=== PATIENT | male | born 1995 | race Asian ===

== ENCOUNTER 2019-04-13 08:27 | Outpatient (CLI) | payer OTHER ==
--- NOTE | 2019-04-13 16:03 | MRI Report ---
Reason: BICIPITAL TENDINITIS Procedure Date: 04/13/2019 Accession Number: [id number] / [id number] Procedure: MRI - Shoulder RT W/O CPT Code: Final Report FULL RESULT: EXAM: RIGHT SHOULDER MRI WITHOUT CONTRAST EXAM DATE: 04/13/2019 10:19 AM. CLINICAL HISTORY: Bicipital tendinitis. COMPARISON: None. TECHNIQUE: Multiplanar, multisequence T1-weighted and fluid-sensitive sequences of the shoulder without contrast. Other: None. FINDINGS: Acromioclavicular Region: The acromion is type II. The acromioclavicular joint is unremarkable. No subacromial/subdeltoid bursal fluid. Glenohumeral Region: No subluxation. No effusion or loose bodies. The articular cartilage is unremarkable. Bone Marrow: No fracture, marrow edema or bone lesions. Labrum: There is fluid between the capsule and labrum in the posteroinferior quadrant. The findings may indicate the presence of a posteroinferior quadrant tear. Musculature/Rotator Cuff: The subscapularis, supraspinatus, infraspinatus, and teres minor tendons are intact. No edema or fatty atrophy. Biceps Tendon: The long head of the biceps tendon and biceps jersey are intact. Other: The subcutaneous tissues are unremarkable. IMPRESSION: 1. Possible small posteroinferior quadrant labral tear. Otherwise normal. RADIA
== END 2019-04-13 08:28 | disposition home or self-care (01) ==
LOC: DI 08:27
DX: M75.21 Bicipital tendinitis, right shoulder (principal)

== ENCOUNTER 2021-08-19 15:02 | Outpatient (CLI) | payer OTHER ==
--- NOTE | 2021-08-19 17:21 | MRI Report ---
PROCEDURE: Wrist LT W/O INDICATIONS: PAIN IN WRIST TECHNIQUE: Noncontrast coronal proton density fast spin echo and T2 fast spin echo with fat saturation; coronal 3-D gradient echo, axial T1 spin echo and T2 fast spin echo with fat saturation, sagittal T1 spin ech o through the wrist. COMPARISON: None. FINDINGS: Image quality: Excellent. Bones and cartilage: Fiducial marker placed over dorsal and medial aspect of wrist at the level of u lnar styloid. The carpal bones are normally aligned. No bone marrow contusions or fractures. No wali dence for avascular necrosis. Overlying cartilage surfaces appear normal. Carpal ligaments: The scapholunate and lunotriquetral ligaments appear intact. In the absence of in tra-articular contrast, the extrinsic carpal ligaments are not well identified. On sagittal images, the pisohamate ligament appears intact. Triangular fibrocartilage complex: The triangular fibrocartilage appears intact. The adjacent menis eliza homolog appears normal in the absence of intra-articular contrast. The extensor carpi ulnaris te ndon is thickened and show mild intrasubstance T2 hyperintense signal at the level of ulnar styloid t ip. Tendons and soft tissues: The carpal tunnel structures appear normal, including the median nerve. T he ulnar nerve appears normal within Guyon's canal. All six extensor tendon compartments demonstrate normal morphology, without pathologic tendon sheath fluid. No soft tissue ganglion cysts. IMPRESSION: 1. Finding suggestive of mild tendinosis involving extensor carpi ulnaris tendon at the level of ulna r styloid tip. Rest of the extensor and flexor tendons are intact. 2. Intrinsic and extrinsic wrist ligaments are intact. 3. Triangular fibrocartilage is intact. 4. No marrow edema. No fracture or dislocation. No suspicious intraosseous lesion. Reviewed by: Trevor Donovan MD on 08/19/2021 5:20 PM PDT Approved by: Trevor Donovan MD on 08/19/2021 5:20 PM PDT Station ID: [id number]
== END 2021-08-19 15:03 | disposition home or self-care (01) ==
LOC: DI 15:02
PROVIDERS: ATTEND Student in an Organized Health Care Education/Training Program
DX: R93.6 Abnormal findings on diagnostic imaging of limbs (principal); R93.89 Abnormal findings on diagnostic imaging of other specified body structures